=== PATIENT | female | born 1970 | race American Indian/Alaskan Native ===

== ENCOUNTER 2016-11-08 00:31 | Emergency (ER) | payer OTHER ==
--- NOTE | 2016-11-08 01:06 | EDM.PDOC ---
ED HPI GENERAL MEDICAL PROBLEM - General Chief Complaint: General Stated Complaint: BODY CRAMPS Time Seen by Provider: 11/08/16 00:45 Source of Information: Reports: Patient History Limitations: Reports: No Limitations - History of Present Illness INITIAL COMMENTS - FREE TEXT/NARRATIVE: c/o generalzied body cramps over past week, seems worse when lying down. notes generally better during day when up and around. No fever or chills, No nausea. Some abdominal bloating earlier in n[place] and gone now. - Related Data Allergies Allergy/AdvReac Type Severity Reaction Status Date / Time furosemide [From Lasix] Allergy Anxiety Verified 11/08/16 00:49 morphine Allergy Itching Verified 11/08/16 00:49 tramadol Allergy Nausea and Verified 11/08/16 00:49 Vomiting amoxicillin [Amoxicillin] AdvReac yeast Verified 11/08/16 00:49 infection hydrochlorothiazide AdvReac rapid pulse Verified 11/08/16 00:49 lisinopril AdvReac Cough Verified 11/08/16 00:49 telmisartan [From Micardis] AdvReac increased Verified 11/08/16 00:49 heart rate,stomach and back pain Home Meds: Home Meds Albuterol Sulfate [Proair Hfa] 2 puff IH Q4H PRN 03/12/13 [History] Omeprazole [Omeprazole] 20 mg PO DAILY 03/12/13 [History] ALPRAZolam [Alprazolam] 1 tab PO DAILY PRN 04/26/14 [History] Fluticasone Propionate [Flovent HFA 110 MCG] 1 puff IH BID PRN 04/26/14 [History ] Losartan [Cozaar] 1 tab PO DAILY 04/26/14 [History] Cholecalciferol (Vitamin D3) [Vitamin D3] 2,000 unit PO DAILY 07/17/15 [History] #103/Iron Fumarate/Fa [ ] 1 tab PO DAILY 07/17/15 [ History] diphenhydrAMINE [Benadryl] 25 mg PO ASDIRECTED PRN 07/17/15 [History] oxyCODONE HCl/Acetaminophen [Endocet 5-325 Tablet] 1 tab PO Q4HR PRN 07/24/15 [ History] Past Medical History Cardiovascular 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: Hypertension Respiratory 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: Asthma Gastrointestinal 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: Chronic Constipation, Diverticulosis, GERD 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: Musculoskeletal 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: Arthritis, Back Pain, Chronic Psychiatric 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: Anxiety, Mood Swings Hematologic 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: Anemia Oncologic (Cancer) 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: Breast - Infectious Disease History Infectious Disease 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: Chicken Pox - Past Surgical History HEENT Surgical 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: Adenoidectomy, Tonsillectomy Respiratory Surgical 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: None Female Surgical 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: Hysterectomy, Mastectomy Other Female Surgeries/Procedures: Right breast Ca Oncologic Surgical 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: Mastectomy Social & Family History - Tobacco Use Smoking Status *Q: Never Smoker Second Hand Smoke Exposure: No - Caffeine Use Caffeine Use: Reports: Soda - Alcohol Use Days Per Week of Alcohol Use: 0 - Recreational Drug Use Recreational Drug Use: No ED ROS GENERAL - Review of Systems Review Of Systems: See Below Constitutional: Denies: Fever, Chills HEENT: Reports: No Symptoms Respiratory: Reports: No Symptoms Cardiovascular: Reports: No Symptoms GI/Abdominal: Reports: Abdominal Pain (cramping worse when lying down) : Reports: No Symptoms Musculoskeletal: Reports: Back Pain, Muscle Pain Skin: Reports: No Symptoms Neurological: Reports: No Symptoms Psychiatric: Reports: Anxiety ED EXAM, GENERAL - Physical Exam Exam: See Below Exam Limited By: No Limitations General Appearance: Alert, Anxious, Moderate Distress, Obese Eye Exam: Bilateral Eye: PERRL Ears: Normal External Exam, Normal TMs Nose: Normal Inspection Throat/Mouth: Normal Inspection Head: Atraumatic Neck: Normal Inspection Respiratory/Chest: No Respiratory Distress Cardiovascular: Normal Peripheral Pulses, Regular Rate, Rhythm GI/Abdominal: Normal Bowel Sounds, Soft, Non-Tender. No: Distended Extremities: Normal Inspection, Pedal Edema Neurological: Alert, Oriented, Normal Cognition Psychiatric: Normal Affect, Anxious Skin Exam: Warm, Dry, Intact, Normal Color, No Rash Course - Vital Signs Last Recorded V/S: Last Vital Signs Temp 96.2 F 11/08/16 00:39 Pulse 83 11/08/16 00:39 Resp 18 11/08/16 00:39 BP 163/88 H 11/08/16 00:39 Pulse Ox 100 11/08/16 00:39 - Orders/Labs/Meds Labs: Laboratory Tests 11/08/16 11/08/16 11/08/16 Range/Units 01:06 01:14 01:14 WBC 14.3 H (5.0-10.0) 10^3/uL RBC 4.47 (4.2-5.4) 10^6/uL Hgb 11.8 L (12.0-16.0) g/dL Hct 37.5 (37.0-47.0) % MCV 83.9 (80-100) fL MCH 26.4 L (27.0-34.0) pg MCHC 31.5 L (33.0-35.0) g/dL Plt Count 372 (150-450) 10^3/uL Neut % (Auto) 56.1 (42.2-75.2) % Lymph % (Auto) 35.2 (20.5-50.1) % [place] % (Auto) 6.7 (2-8) % Eos % (Auto) 1.7 (1.0-3.0) % Baso % (Auto) 0.3 (0.0-1.0) % Sodium 133 L (135-145) mmol/L Potassium 4.0 (3.6-5.0) mmol/L Chloride 102 (101-111) mmol/L Carbon Dioxide 23.0 (21.0-31.0) mmol/L Anion Gap 12.0 BUN 17 (7-18) mg/dL Creatinine 1.3 (0.6-1.3) mg/dL Est Cr Clr Drug Dosing 48.58 mL/min Estimated GFR (MDRD) 44 BUN/Creatinine Ratio 13.07 Glucose 116 H (74-105) mg/dL Calcium 9.4 (8.4-10.2) mg/dl Total Bilirubin 0.7 (0.2-1.0) mg/dL AST 29 (10-42) IU/L ALT 32 (10-60) IU/L Alkaline Phosphatase 114 (42-121) IU/L Creatine Kinase (26-174) IU/L Total Protein 8.2 (6.7-8.2) g/dl Albumin 4.0 (3.2-5.5) g/dl Globulin 4.2 Albumin/Globulin Ratio 0.95 Amylase 41 (28-100) U/L Lipase 36 (22-51) U/L Urine Color Yellow (YELLOW) Urine Appearance Clear (CLEAR) Urine pH 7.0 (5.0-9.0) Ur Specific [place] 1.010 (1.005-1.030) Urine Protein Negative (NEGATIVE) Urine Glucose (UA) Negative (NEGATIVE) Urine Ketones Negative (NEGATIVE) Urine Occult Blood Trace-intact H (NEGATIVE) Urine Nitrite Negative (NEGATIVE) Urine Bilirubin Negative (NEGATIVE) Urine Urobilinogen 0.2 (0.2-1.0) mg/dL Ur Leukocyte Esterase Negative (NEGATIVE) Urine RBC 0-5 /HPF Urine WBC 0-5 (0-5/HPF) /HPF Ur Epithelial Cells Rare /HPF Amorphous Sediment Rare (0/HPF) /HPF Urine Bacteria Rare (0-FEW/HPF) /HPF 11/08/16 Range/Units 01:14 WBC (5.0-10.0) 10^3/uL RBC (4.2-5.4) 10^6/uL Hgb (12.0-16.0) g/dL Hct (37.0-47.0) % MCV (80-100) fL MCH (27.0-34.0) pg MCHC (33.0-35.0) g/dL Plt Count (150-450) 10^3/uL Neut % (Auto) (42.2-75.2) % Lymph % (Auto) (20.5-50.1) % [place] % (Auto) (2-8) % Eos % (Auto) (1.0-3.0) % Baso % (Auto) (0.0-1.0) % Sodium (135-145) mmol/L Potassium (3.6-5.0) mmol/L Chloride (101-111) mmol/L Carbon Dioxide (21.0-31.0) mmol/L Anion Gap BUN (7-18) mg/dL Creatinine (0.6-1.3) mg/dL Est Cr Clr Drug Dosing mL/min Estimated GFR (MDRD) BUN/Creatinine Ratio Glucose (74-105) mg/dL Calcium (8.4-10.2) mg/dl Total Bilirubin (0.2-1.0) mg/dL AST (10-42) IU/L ALT (10-60) IU/L Alkaline Phosphatase (42-121) IU/L Creatine Kinase 169 (26-174) IU/L Total Protein (6.7-8.2) g/dl Albumin (3.2-5.5) g/dl Globulin Albumin/Globulin Ratio Amylase (28-100) U/L Lipase (22-51) U/L Urine Color (YELLOW) Urine Appearance (CLEAR) Urine pH (5.0-9.0) Ur Specific [place] (1.005-1.030) Urine Protein (NEGATIVE) Urine Glucose (UA) (NEGATIVE) Urine Ketones (NEGATIVE) Urine Occult Blood (NEGATIVE) Urine Nitrite (NEGATIVE) Urine Bilirubin (NEGATIVE) Urine Urobilinogen (0.2-1.0) mg/dL Ur Leukocyte Esterase (NEGATIVE) Urine RBC /HPF Urine WBC (0-5/HPF) /HPF Ur Epithelial Cells /HPF Amorphous Sediment (0/HPF) /HPF Urine Bacteria (0-FEW/HPF) /HPF Meds: Medications Discontinued Medications Generic Name Dose Route Start Last Admin Trade Name Freq PRN Reason Stop Dose Admin Gabapentin 200 mg 11/08/16 02:28 Neurontin PO 11/08/16 02:29 ONETIME ONE Departure - Departure Time of Disposition: 02:29 Disposition: Home, Self-Care 01 Condition: Undetermined Clinical Impression: Myalgia, Muscle cramps at night - Discharge Information Instructions: Muscle Cramps and Spasms, [id number] Forms: ED Department Discharge Additional Instructions: Follow up with primary care Gabapentin 300mg one at bed time increase fluid intake avoid soda's, and hi sodium content foods supplement tylenol every 4 hours as needed avoid ibuprofen if on diclofenac
[2016-11-08] MEDS ORDERED: Gabapentin 100 MG Cap PO ONE (02:28)
[2016-11-08 02:41] VITALS: BP 147/76
== END 2016-11-08 02:40 | disposition home or self-care (01) ==
LOC: DL.ED 00:31
DX: R25.2 Cramp and spasm (principal); I10 Essential (primary) hypertension; J45.909 Unspecified asthma, uncomplicated; K21.9 Gastro-esophageal reflux disease without esophagitis; Z90.710 Acquired absence of both cervix and uterus; Z98.890 Other specified postprocedural states; Z86.2 Personal history of diseases of the blood and blood-forming organs and certain disorders involving the immune mechanism; Z88.5 Allergy status to narcotic agent; Z88.1 Allergy status to other antibiotic agents; Z88.8 Allergy status to other drugs, medicaments and biological substances; Z79.899 Other long term (current) drug therapy
CPT/HCPCS: 36415; 80053; 81001; 82150; 82550; 83690; 85025; 99283; A9270

== ENCOUNTER 2017-02-24 19:09 | Emergency (ER) | payer OTHER ==
[2017-02-24 19:16] VITALS: BP 159/96
--- NOTE | 2017-02-24 19:31 | EDM.PDOC ---
ED HPI GENERAL MEDICAL PROBLEM - General Chief Complaint: Respiratory Problem Stated Complaint: HARD TO BREATH/COUGH/SINUS [id number] Time Seen by Provider: 02/24/17 19:23 Source of Information: Reports: Patient History Limitations: Reports: No Limitations - History of Present Illness INITIAL COMMENTS - FREE TEXT/NARRATIVE: This 46 yo female patient reports to the ED with a 1 week history of increased upper respiratory symptoms. The patient reports she has a history of asthma. The patient reports when she starts getting sick, she usually ends up with bronchitis. 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, Other Medication(s) (Prednisone and Teslon Pearles) Bilateral Thoracic Pain Score (Numeric/FACES): 5 - Related Data Allergies Allergy/AdvReac Type Severity Reaction Status Date / Time furosemide [From Lasix] Allergy Anxiety Verified 11/08/16 00:49 morphine Allergy Itching Verified 11/08/16 00:49 tramadol Allergy Nausea and Verified 11/08/16 00:49 Vomiting amoxicillin [Amoxicillin] AdvReac yeast Verified 11/08/16 00:49 infection hydrochlorothiazide AdvReac rapid pulse Verified 11/08/16 00:49 lisinopril AdvReac Cough Verified 11/08/16 00:49 telmisartan [From Micardis] AdvReac increased Verified 11/08/16 00:49 heart rate,stomach and back pain Home Meds: Home Meds Albuterol Sulfate [Proair Hfa] 2 puff IH Q4H PRN 03/12/13 [History] ALPRAZolam [Alprazolam] 1 tab PO DAILY PRN 04/26/14 [History] Fluticasone Propionate [Flovent HFA 110 MCG] 1 puff IH BID PRN 04/26/14 [History ] Losartan [Cozaar] 1 tab PO DAILY 04/26/14 [History] Cholecalciferol (Vitamin D3) [Vitamin D3] 2,000 unit PO DAILY 07/17/15 [History] diphenhydrAMINE [Benadryl] 25 mg PO ASDIRECTED PRN 07/17/15 [History] Benzonatate [Tessalon Perles] 100 mg PO TID 02/24/17 [History] Methylprednisolone [IJD: Methylprednisolone] 4 mg PO ASDIRECTED 02/24/17 [ History] Past Medical History Cardiovascular 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: Hypertension Respiratory 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: Asthma Gastrointestinal 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: Chronic Constipation, Diverticulosis, 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: Musculoskeletal 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: Arthritis, Back Pain, Chronic Psychiatric 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: Anxiety, Mood Swings Hematologic 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: Anemia Oncologic (Cancer) 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: Breast - Infectious Disease History Infectious Disease 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: Chicken Pox - Past Surgical History HEENT Surgical 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: Adenoidectomy, Tonsillectomy Respiratory Surgical 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: None Female Surgical 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: Hysterectomy, Mastectomy Other Female Surgeries/Procedures: Right breast Ca Oncologic Surgical 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: Mastectomy Social & Family History - Tobacco Use Smoking Status *Q: Never Smoker Second Hand Smoke Exposure: No - Caffeine Use Caffeine Use: Reports: Soda - Alcohol Use Days Per Week of Alcohol Use: 0 - Recreational Drug Use Recreational Drug Use: No ED ROS GENERAL - Review of Systems Review Of Systems: ROS reveals no pertinent complaints other than HPI. ED EXAM, GENERAL - Physical Exam Exam: See Below Exam Limited By: No Limitations General Appearance: Alert, WD/WN, Moderate Distress, Obese Eye Exam: Bilateral Eye: EOMI, Normal Inspection, PERRL Ears: Normal External Exam, Normal Canal, Hearing Grossly Normal, Normal TMs Nose: Normal Inspection, Normal Mucosa, No Blood, Clear Rhinorrhea Throat/Mouth: Normal Inspection, Normal Lips, Normal Teeth, Normal Gums, Normal Oropharynx, Normal Voice, No Airway Compromise Head: Atraumatic, Normocephalic Neck: Normal Inspection, Supple, Non-Tender, Full Range of Motion Respiratory/Chest: No Respiratory Distress, No Accessory Muscle Use, Chest Non- Tender, Rhonchi (left lower lobe) Cardiovascular: Normal Peripheral Pulses, Regular Rate, Rhythm, No Edema, No Gallop, No JVD, No Murmur, No Rub GI/Abdominal: Normal Bowel Sounds, Soft, Non-Tender, No Organomegaly, No Distention, No Abnormal Bruit, No Mass (Female) Exam: Deferred Rectal (Female) Exam: Deferred Back Exam: Normal Inspection, Full Range of Motion, NT Extremities: Normal Inspection, Normal Range of Motion, Non-Tender, Normal Capillary Refill, No Pedal Edema Neurological: Alert, Oriented, CN II-XII Intact, Normal Cognition, Normal Gait, Normal Reflexes, No Motor/Sensory Deficits Psychiatric: Normal Affect, Normal Mood Skin Exam: Warm, Dry, Intact, Normal Color, No Rash Lymphatic: No Adenopathy Course - Vital Signs Last Recorded V/S: Last Vital Signs Temp 36.8 C 02/24/17 19:11 Pulse 88 02/24/17 19:11 Resp 18 02/24/17 19:11 BP 159/96 H 02/24/17 19:11 Pulse Ox 99 02/24/17 19:11 - Orders/Labs/Meds Orders: Active Orders 24 hr Category Date Time Status COMPREHENSIVE METABOLIC PN,CMP [CHEM] Urgent Lab 02/24/17 19:45 Received CULTURE STREP A CONFIRMATION [] Stat Lab 02/24/17 19:26 Results STREP SCRN A RAPID W CULT CONF [] Stat Lab 02/24/17 19:26 Results Labs: Laboratory Tests 02/24/17 Range/Units 19:45 WBC 11.3 H (5.0-10.0) 10^3/uL RBC 4.58 (4.2-5.4) 10^6/uL Hgb 11.9 L (12.0-16.0) g/dL Hct 38.6 (37.0-47.0) % MCV 84.3 (80-100) fL MCH 26.0 L (27.0-34.0) pg MCHC 30.8 L (33.0-35.0) g/dL Plt Count 304 (150-450) 10^3/uL Neut % (Auto) 66.1 (42.2-75.2) % Lymph % (Auto) 22.3 (20.5-50.1) % [place] % (Auto) 10.9 H (2-8) % Eos % (Auto) 0.3 L (1.0-3.0) % Baso % (Auto) 0.4 (0.0-1.0) % Meds: Medications Discontinued Medications Generic Name Dose Route Start Last Admin Trade Name Freq PRN Reason Stop Dose Admin Ceftriaxone Sodium 1 gm/ 0 gm 02/24/17 20:00 Lidocaine HCl 2.1 ml IM 02/24/17 20:01 ONETIME ONE Departure - Departure Time of Disposition: 20:01 Disposition: Home, Self-Care 01 Condition: Fair Clinical Impression: Bronchitis - Discharge Information Instructions: Acute Bronchitis, [id number] Forms: ED Department Discharge Care Plan Goals: The patient was advised of the examination, lab and x-ray results during the visit. The patient was given an injection of Rocephin while in the ED. The patient was discharged with a script for Azithromycin (250 mg) #6 to take 2 by mouth on day 1 and 1 by mouth on days 2-5. The patient should continue with her current medications as prescribed. If the patient has any additional symptoms or concerns, the patient should follow-up with her primary care facility or return to the emergency department. - My Orders Last 24 Hours: My Active Orders 02/24/17 19:26 CULTURE STREP A CONFIRMATION [RM] Stat STREP SCRN A RAPID W CULT CONF [RM] Stat 02/24/17 19:45 COMPREHENSIVE METABOLIC PN,CMP [CHEM] Urgent - Assessment/Plan Last 24 Hours: My Active Orders 02/24/17 19:26 CULTURE STREP A CONFIRMATION [RM] Stat STREP SCRN A RAPID W CULT CONF [RM] Stat 02/24/17 19:45 COMPREHENSIVE METABOLIC PN,CMP [CHEM] Urgent
[2017-02-24] MEDS ORDERED: cefTRIAXone 1 GM, Lidocaine 1% 2.1 ML IM ONE ×2 (20:00)
[2017-02-24] MEDS ORDERED: cefTRIAXone 1 GM Vial ONE (20:10)
[2017-02-24 20:11] LABS: CHLORIDE,CL 104 mmol/L (101-111); SODIUM,NA 138 mmol/L (135-145)
== END 2017-02-24 20:20 | disposition home or self-care (01) ==
LOC: DL.ED 19:09
DX: J40 Bronchitis, not specified as acute or chronic (principal); I10 Essential (primary) hypertension; Z88.5 Allergy status to narcotic agent; Z91.040 Latex allergy status; Z88.1 Allergy status to other antibiotic agents; Z79.899 Other long term (current) drug therapy
CPT/HCPCS: 36415; 71020; 80053; 85025; 87081; 87430; 87804; 96372; 99283; J0696

== ENCOUNTER 2017-06-17 21:50 | Emergency (ER) | payer OTHER ==
[2017-06-17 22:06] VITALS: BP 157/88
[2017-06-17] MEDS ORDERED: GI Cocktail Oral Solution 30 ML PO ONE (22:10)
--- NOTE | 2017-06-17 22:13 | EDM.PDOC ---
ED HPI GENERAL MEDICAL PROBLEM - General Chief Complaint: Chest Pain Stated Complaint: CHEST PAIN [id number] Time Seen by Provider: 06/17/17 22:11 Source of Information: Reports: Patient, Family History Limitations: Reports: No Limitations - History of Present Illness INITIAL COMMENTS - FREE TEXT/NARRATIVE: 4 days h/o mid sternal pain is relieved somewhat by drinking baking soda but returns. tried OTC prilosec but still returns. Mid-Sternal Chest Pain Score (Numeric/FACES): 5 - Related Data Allergies Allergy/AdvReac Type Severity Reaction Status Date / Time furosemide [From Lasix] Allergy Anxiety Verified 06/17/17 22:06 morphine Allergy Itching Verified 06/17/17 22:06 tramadol Allergy Nausea and Verified 06/17/17 22:06 Vomiting amoxicillin [Amoxicillin] AdvReac yeast Verified 06/17/17 22:06 infection hydrochlorothiazide AdvReac rapid pulse Verified 06/17/17 22:06 lisinopril AdvReac Cough Verified 06/17/17 22:06 telmisartan [From Micardis] AdvReac increased Verified 06/17/17 22:06 heart rate,stomach and back pain Home Meds: Home Meds Albuterol Sulfate [Proair Hfa] 2 puff IH Q4H PRN 03/12/13 [History] ALPRAZolam [Alprazolam] 1 tab PO DAILY PRN 04/26/14 [History] Fluticasone Propionate [Flovent HFA 110 MCG] 1 puff IH BID PRN 04/26/14 [History ] Losartan [Cozaar] 1 tab PO DAILY 04/26/14 [History] Cholecalciferol (Vitamin D3) [Vitamin D3] 2,000 unit PO DAILY 07/17/15 [History] diphenhydrAMINE [Benadryl] 25 mg PO ASDIRECTED PRN 07/17/15 [History] Benzonatate [Tessalon Perles] 100 mg PO TID 02/24/17 [History] Methylprednisolone [IJD: Methylprednisolone] 4 mg PO ASDIRECTED 02/24/17 [ History] Past Medical History Cardiovascular 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: Hypertension Respiratory 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: Asthma Gastrointestinal 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: Chronic Constipation, Diverticulosis, 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: Musculoskeletal 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: Arthritis, Back Pain, Chronic Psychiatric 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: Anxiety, Mood Swings Hematologic 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: Anemia Oncologic (Cancer) 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: Breast - Infectious Disease History Infectious Disease 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: Chicken Pox - Past Surgical History HEENT Surgical 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: Adenoidectomy, Tonsillectomy Respiratory Surgical 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: None Female Surgical 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: Hysterectomy, Mastectomy Other Female Surgeries/Procedures: Right breast Ca Oncologic Surgical 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: Mastectomy Social & Family History - Tobacco Use Smoking Status *Q: Never Smoker Second Hand Smoke Exposure: No - Caffeine Use Caffeine Use: Reports: Soda - Alcohol Use Days Per Week of Alcohol Use: 0 - Recreational Drug Use Recreational Drug Use: No ED ROS GENERAL - Review of Systems Review Of Systems: ROS reveals no pertinent complaints other than HPI. ED EXAM, GENERAL - Physical Exam Exam: See Below Exam Limited By: No Limitations General Appearance: Alert, WD/WN, Mild Distress, Other (discomfort) Ears: Hearing Grossly Normal Throat/Mouth: Normal Voice, No Airway Compromise Head: Atraumatic Neck: Non-Tender, Full Range of Motion Respiratory/Chest: No Respiratory Distress Cardiovascular: Regular Rate, Rhythm GI/Abdominal: Soft, Non-Tender Neurological: Alert, Oriented, Normal Cognition, Normal Gait, No Motor/Sensory Deficits Psychiatric: Flat Affect Skin Exam: Warm, Dry, Normal Color Lymphatic: No Adenopathy Course - Vital Signs Last Recorded V/S: Last Vital Signs Temp 37.3 C 06/17/17 21:57 Pulse 91 06/17/17 21:57 Resp 16 06/17/17 21:57 BP 157/88 H 06/17/17 21:57 Pulse Ox 100 06/17/17 21:57 - Orders/Labs/Meds Orders: Active Orders 24 hr Category Date Time Status EKG 12 Lead [EKG Documentation Completion] [RC] URGENT Care 06/17/17 22:09 Active Labs: Laboratory Tests 06/17/17 06/17/17 06/17/17 Range/Units 22:15 22:15 22:15 WBC 11.6 H (5.0-10.0) 10^3/uL RBC 4.41 (4.2-5.4) 10^6/uL Hgb 11.8 L (12.0-16.0) g/dL Hct 36.8 L (37.0-47.0) % MCV 83.4 (80-100) fL MCH 26.8 L (27.0-34.0) pg MCHC 32.1 L (33.0-35.0) g/dL Plt Count 305 (150-450) 10^3/uL Neut % (Auto) 52.7 (42.2-75.2) % Lymph % (Auto) 37.8 (20.5-50.1) % [place] % (Auto) 6.6 (2-8) % Eos % (Auto) 2.5 (1.0-3.0) % Baso % (Auto) 0.4 (0.0-1.0) % D-Dimer, Quantitative 110 (0-400) ng/mL Sodium 140 (135-145) mmol/L Potassium 3.7 (3.6-5.0) mmol/L Chloride 105 (101-111) mmol/L Carbon Dioxide 27.0 (21.0-31.0) mmol/L Anion Gap 11.7 BUN 9 (7-18) mg/dL Creatinine 0.7 (0.6-1.3) mg/dL Est Cr Clr Drug Dosing 81.30 mL/min Estimated GFR (MDRD) > 60 BUN/Creatinine Ratio 12.85 Glucose 88 (74-105) mg/dL Calcium 9.0 (8.4-10.2) mg/dl Total Bilirubin 0.7 (0.2-1.0) mg/dL AST 58 H (10-42) IU/L ALT 57 (10-60) IU/L Alkaline Phosphatase 101 (42-121) IU/L Troponin I < 0.02 (0.00-0.02) ng/ml Total Protein 7.4 (6.7-8.2) g/dl Albumin 3.9 (3.2-5.5) g/dl Globulin 3.5 Albumin/Globulin Ratio 1.11 Meds: Medications Discontinued Medications Generic Name Dose Route Start Last Admin Trade Name Freq PRN Reason Stop Dose Admin Al Hydroxide/Mg Hydroxide 30 ml 06/17/17 22:10 06/17/17 22:15 Gi Cocktail PO 06/17/17 22:11 30 ml ONETIME ONE Administration Ketorolac Tromethamine 15 mg 06/17/17 23:14 06/17/17 23:21 Toradol IVPUSH 06/17/17 23:15 15 mg ONETIME ONE Administration Pantoprazole Sodium 40 mg 06/17/17 23:34 06/17/17 23:39 Protonix Iv IVPUSH 06/17/17 23:35 40 mg ONETIME ONE Administration - Re-Assessments/Exams Free Text/Narrative Re-Assessment/Exam: 06/17/17 22:25 s/p GI cocktail states heartburn sensation gone but the other pain is still there which has been since Sunday. 06/17/17 23:34 s/p IV toradol = much better now. 06/18/17 00:00 s/p IV protonex pain almost totally gone now. Departure - Departure Time of Disposition: 00:00 Disposition: Home, Self-Care 01 Condition: Good Clinical Impression: GERD (gastroesophageal reflux disease) Qualifiers: Esophagitis presence: with esophagitis Qualified Code(s): K21.0 - Gastro- esophageal reflux disease with esophagitis Instructions: Food Choices for Gastroesophageal Reflux Disease, Adult Forms: ED Department Discharge Additional Instructions: 1) continue with omeprazole 2) follow up at clinic for possible GASTROSCOPY 3) recheck if there is any change or concern - My Orders Last 24 Hours: My Active Orders 06/17/17 22:09 EKG 12 Lead [EKG Documentation Completion] [RC] URGENT - Assessment/Plan Last 24 Hours: My Active Orders 06/17/17 22:09 EKG 12 Lead [EKG Documentation Completion] [RC] URGENT
[2017-06-17 22:45] LABS: CHLORIDE,CL 105 mmol/L (101-111); SODIUM,NA 140 mmol/L (135-145)
[2017-06-17] MEDS ORDERED: Ketorolac 30 MG/ML SDV IVPUSH ONE (23:14)
[2017-06-17] MEDS ORDERED: Pantoprazole 40 MG Vial IVPUSH ONE (23:34)
--- NOTE | 2017-06-18 17:20 | EKG ---
06/17/2017 - BRITTANY CAUSEY - TIME: 2203 hours. FINDINGS: EKG shows a sinus rhythm. Probable inferior infarct. [facility] /[id number]
== END 2017-06-18 00:05 | disposition home or self-care (01) ==
LOC: DL.ED 21:50
DX: K21.0 Gastro-esophageal reflux disease with esophagitis (principal); I10 Essential (primary) hypertension; Z88.5 Allergy status to narcotic agent; Z88.8 Allergy status to other drugs, medicaments and biological substances; Z88.1 Allergy status to other antibiotic agents; Z79.899 Other long term (current) drug therapy
CPT/HCPCS: 36415; 71045; 80053; 84484; 85025; 85379; 93005; 96374; 96375; 99285; A9270-GY; C9113; J1885

== ENCOUNTER 2017-11-20 16:32 | Emergency (ER) | payer OTHER ==
[2017-11-20] MEDS ORDERED: Phenazopyridine 95 MG Tab PO ONE (19:32)
[2017-11-20] MEDS ORDERED: Nitrofurantoin Monohydrate/Macrocrystalline 100 MG Cap PO ONE (19:32)
--- NOTE | 2017-11-20 19:36 | EDM.PDOC ---
ED HPI GENERAL MEDICAL PROBLEM - General Chief Complaint: Genitourinary Problem Stated Complaint: BLEEDING/[id number] Time Seen by Provider: 11/20/17 19:24 Source of Information: Reports: Patient, RN, RN Notes Reviewed History Limitations: Reports: No Limitations - History of Present Illness INITIAL COMMENTS - FREE TEXT/NARRATIVE: Pt to Er with c/o burning, urgency, frequency with urination, in addition to blood with urination. She states this began today. She states she has been drinking cranberry juice, but it has progressively gotten worse today. Patient admits to stomach cramping and diarrhea. Denies fever, chills, N/V, CP, SOB. Onset: Today Abdominal Pain Score (Numeric/FACES): 8 - Related Data Allergies Allergy/AdvReac Type Severity Reaction Status Date / Time furosemide [From Lasix] Allergy Anxiety Verified 10/20/17 22:26 morphine Allergy Itching Verified 10/20/17 22:26 tramadol Allergy Nausea and Verified 10/20/17 22:26 Vomiting amoxicillin [Amoxicillin] AdvReac yeast Verified 10/20/17 22:26 infection hydrochlorothiazide AdvReac rapid pulse Verified 10/20/17 22:26 lisinopril AdvReac Cough Verified 10/20/17 22:26 telmisartan [From Micardis] AdvReac increased Verified 10/20/17 22:26 heart rate,stomach and back pain Home Meds: Home Meds Albuterol Sulfate [Proair Hfa] 2 puff IH Q4H PRN 03/12/13 [History] ALPRAZolam [Alprazolam] 1 tab PO DAILY PRN 04/26/14 [History] Fluticasone Propionate [Flovent HFA 110 MCG] 1 puff IH BID PRN 04/26/14 [History ] Losartan [Cozaar] 1 tab PO DAILY 04/26/14 [History] diphenhydrAMINE [Benadryl] 25 mg PO ASDIRECTED PRN 07/17/15 [History] Gabapentin [Neurontin] 300 mg PO BID 10/20/17 [History] Past Medical History HEENT 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: Impaired Vision Cardiovascular 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: Hypertension Respiratory 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: Asthma Gastrointestinal 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: Chronic Constipation, Diverticulosis, GERD 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: , Other (See Below) Other 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 SPOTTER History: hysterectomy Musculoskeletal 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: Arthritis, Back Pain, Chronic Psychiatric 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: Anxiety, Mood Swings Endocrine/Metabolic 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: Obesity/BMI 30+ Hematologic 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: Anemia Oncologic (Cancer) 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: Breast - Infectious Disease History Infectious Disease 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: Chicken Pox - Past Surgical History HEENT Surgical 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: Adenoidectomy, Tonsillectomy Respiratory Surgical 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: None GI Surgical 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: Appendectomy, Cholecystectomy Female Surgical 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: Breast Biopsy, Hysterectomy, Mastectomy Other Female Surgeries/Procedures: Right breast Ca Oncologic Surgical 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: Mastectomy Social & Family History - Family History Family Medical History: Noncontributory - Tobacco Use Smoking Status *Q: Never Smoker - Caffeine Use Caffeine Use: Reports: Soda - Recreational Drug Use Recreational Drug Use: No ED ROS GENERAL - Review of Systems Review Of Systems: ROS reveals no pertinent complaints other than HPI. ED EXAM, RENAL/ - Physical Exam Exam: See Below Exam Limited By: No Limitations General Appearance: Alert, WD/WN, No Apparent Distress Eye Exam: Bilateral Eye: EOMI, Normal Inspection Ears: Normal External Exam, Hearing Grossly Normal Nose: Normal Inspection Throat/Mouth: Normal Inspection, Normal Voice, No Airway Compromise Head: Atraumatic, Normocephalic Neck: Normal Inspection Respiratory/Chest: No Respiratory Distress, Lungs Clear, Normal Breath Sounds, No Accessory Muscle Use, Chest Non-Tender Cardiovascular: Normal Peripheral Pulses, Regular Rate, Rhythm, No Edema, No Gallop, No JVD, No Murmur, No Rub GI/Abdominal: Normal Bowel Sounds, Soft, Tender (RLQ, LLQ) (Female) Exam: Deferred Rectal (Female) Exam: Deferred Back Exam: Normal Inspection, Full Range of Motion. No: CVA Tenderness (L), CVA Tenderness (R) Extremities: Normal Inspection, Normal Range of Motion, Non-Tender, No Pedal Edema, Normal Capillary Refill Neurological: Alert, Oriented, CN II-XII Intact, Normal Cognition, Normal Gait, Normal Reflexes, No Motor/Sensory Deficits Psychiatric: Normal Affect, Normal Mood Skin Exam: Warm, Dry, Intact, Normal Color, No Rash Lymphatic: No Adenopathy Course - Vital Signs Last Recorded V/S: Last Vital Signs Temp 98.2 F 11/20/17 17:14 Pulse 86 11/20/17 17:14 Resp 16 11/20/17 17:14 BP Pulse Ox 100 11/20/17 17:14 - Orders/Labs/Meds Orders: Active Orders 24 hr Category Date Time Status CULTURE URINE [RM] Urgent Lab 11/20/17 18:04 Received URINALYSIS W/MICROSCOPIC [UA W/MICROSCOPIC] [URIN] Stat Lab 11/20/17 18:04 Ordered Labs: Laboratory Tests 11/20/17 Range/Units 18:04 Urine Color Dark yellow (YELLOW) Urine Appearance Turbid (CLEAR) Urine pH 5.5 (5.0-9.0) Ur Specific [place] 1.010 (1.005-1.030) Urine Protein 30 H (NEGATIVE) Urine Glucose (UA) Negative (NEGATIVE) Urine Ketones Negative (NEGATIVE) Urine Occult Blood Large H (NEGATIVE) Urine Nitrite Negative (NEGATIVE) Urine Bilirubin Negative (NEGATIVE) Urine Urobilinogen 0.2 (0.2-1.0) mg/dL Ur Leukocyte Esterase Large H (NEGATIVE) Urine RBC >100 H /HPF Urine WBC 75-100 H (0-5/HPF) /HPF Ur Epithelial Cells Rare /HPF Amorphous Sediment Rare (0/HPF) /HPF Urine Bacteria Few (0-FEW/HPF) /HPF Urine Mucus Rare /LPF Meds: Medications Discontinued Medications Generic Name Dose Route Start Last Admin Trade Name Freq PRN Reason Stop Dose Admin Nitrofurantoin Macrocrystals 100 mg 11/20/17 19:32 11/20/17 19:36 Macrobid PO 11/20/17 19:33 100 mg ONETIME ONE Administration Phenazopyridine HCl 95 mg 11/20/17 19:32 11/20/17 19:36 Urinary Pain Relief PO 11/20/17 19:33 95 mg ONETIME ONE Administration Departure - Departure Time of Disposition: 19:35 Disposition: Home, Self-Care 01 Condition: Fair Clinical Impression: UTI (urinary tract infection) Qualifiers: Urinary tract infection type: acute cystitis Hematuria presence: with hematuria Qualified Code(s): N30.01 - Acute cystitis with hematuria - Discharge Information *PRESCRIPTION DRUG MONITORING PROGRAM REVIEWED*: No *COPY OF PRESCRIPTION DRUG MONITORING REPORT IN PATIENT RAMON: No Instructions: Urinary Tract Infection, Adult, [id number] Forms: ED Department Discharge Additional Instructions: Drink plenty of fluids RX: Macrobid, Pyridium Follow up with your primary care facility for recheck of the urine - My Orders Last 24 Hours: My Active Orders 11/20/17 18:04 CULTURE URINE [RM] Urgent - Assessment/Plan Last 24 Hours: My Active Orders 11/20/17 18:04 CULTURE URINE [RM] Urgent
== END 2017-11-20 19:38 | disposition home or self-care (01) ==
LOC: DL.ED 16:32
DX: N30.01 Acute cystitis with hematuria (principal); I10 Essential (primary) hypertension; J45.909 Unspecified asthma, uncomplicated; Z88.8 Allergy status to other drugs, medicaments and biological substances; Z88.5 Allergy status to narcotic agent; Z79.899 Other long term (current) drug therapy
CPT/HCPCS: 81001; 87086; 99283; A9270; 87186

== ENCOUNTER 2020-11-03 22:12 | Emergency (ER) | payer MEDICAID, OTHER ==
--- NOTE | 2020-11-03 22:53 | EDM.PDOC ---
ED HPI GENERAL MEDICAL PROBLEM - General Chief Complaint: Abdominal Pain Stated Complaint: DIVERTICULITUS, PAIN IS HURTING. Time Seen by Provider: 11/03/20 22:40 Source of Information: Reports: Patient History Limitations: Reports: No Limitations - History of Present Illness INITIAL COMMENTS - FREE TEXT/NARRATIVE: This 50 yo female patient reports to the ED with increased abdominal pain. The patient reports she does have a history of diverticulitis and started noticing increased pain over the past week. The patient was seen in the [facility] today and started on antibiotics, but has had increased pain since that visit. The patient reports she was advised to come to the ED if she had an increase in pain or fever. The patient denies a fever. The patient has not been seen by a GI specialist at this time. The patient reports she did waste picker her antibiotics and took them as directed. Duration: Week(s):, Constant, Getting Worse Location: Reports: Abdomen Quality: Reports: Other Severity: Moderate Improves with: Reports: None Worsens with: Reports: None Context: Reports: Other Associated Symptoms: Reports: Other Abdomen Pain Score (Numeric/FACES): 6 - Related Data Allergies Allergy/AdvReac Type Severity Reaction Status Date / Time furosemide [From Lasix] Allergy Anxiety Verified 11/03/20 22:45 morphine Allergy Itching Verified 11/03/20 22:45 tramadol Allergy Nausea and Verified 11/03/20 22:45 Vomiting amoxicillin [Amoxicillin] AdvReac yeast Verified 11/03/20 22:45 infection hydrochlorothiazide AdvReac rapid pulse Verified 11/03/20 22:45 lisinopril AdvReac Cough Verified 11/03/20 22:45 telmisartan [From Micardis] AdvReac increased Verified 11/03/20 22:45 heart rate,stomach and back pain Home Meds: Home Meds Albuterol Sulfate [Proair Hfa] 2 puff IH Q4H PRN 03/12/13 [History] ALPRAZolam [Alprazolam] 1 tab PO DAILY PRN 04/26/14 [History] Fluticasone Propionate [Flovent HFA 110 MCG] 1 puff IH BID PRN 04/26/14 [History] Losartan [Cozaar] 1 tab PO DAILY 04/26/14 [History] diphenhydrAMINE [Benadryl] 25 mg PO ASDIRECTED PRN 07/17/15 [History] Gabapentin [Neurontin] 300 mg PO DAILY 08/07/18 [History] Past Medical History HEENT 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: Impaired Vision Cardiovascular 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: Hypertension Respiratory 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: Asthma Gastrointestinal 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: Chronic Constipation, Diverticulosis, GERD 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: , Other (See Below) Other RECORDS MANAGEMENT ANALYST History: hysterectomy Musculoskeletal 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: Arthritis, Back Pain, Chronic Neurological 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: Other (See Below) Other Neuro History: muscle spasms Psychiatric 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: Anxiety, Mood Swings Endocrine/Metabolic 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: Obesity/BMI 30+ Hematologic 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: Anemia Immunologic 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: None Oncologic (Cancer) 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: Breast - Infectious Disease History Infectious Disease 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: Chicken Pox - Past Surgical History Head Surgeries/Procedures: Reports: None HEENT Surgical 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: Adenoidectomy, Tonsillectomy Respiratory Surgical 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: None GI Surgical 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: Appendectomy, Cholecystectomy Female Surgical 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: Breast Biopsy, Hysterectomy, Mastectomy Other Female Surgeries/Procedures: Right breast Ca Musculoskeletal Surgical 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: None Oncologic Surgical 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: Mastectomy Dermatological Surgical 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: Skin Biopsy Social & Family History - Family History Family Medical History: No Pertinent Family History - Tobacco Use Tobacco Use Status *Q: Never Tobacco User - Caffeine Use Caffeine Use: Reports: Soda - Recreational Drug Use Recreational Drug Use: No ED ROS GENERAL - Review of Systems Review Of Systems: Comprehensive ROS is negative, except as noted in HPI. ED EXAM, GI/ABD - Physical Exam Exam: See Below Exam Limited By: No Limitations General Appearance: Alert, WD/WN, Moderate Distress, Obese Eyes: Bilateral: Normal Appearance, EOMI Ears: Normal External Exam, Normal Canal, Hearing Grossly Normal, Normal TMs Nose: Normal Inspection, Normal Mucosa, No Blood Throat/Mouth: Normal Inspection, Normal Lips, Normal Teeth, Normal Gums, Normal Oropharynx, Normal Voice, No Airway Compromise Head: Atraumatic, Normocephalic Neck: Normal Inspection, Supple, Non-Tender, Full Range of Motion Respiratory/Chest: No Respiratory Distress, Lungs Clear, Normal Breath Sounds, No Accessory Muscle Use, Chest Non-Tender Cardiovascular: Normal Peripheral Pulses, Regular Rate, Rhythm, No Edema, No Gallop, No JVD, No Murmur, No Rub GI/Abdominal Exam: Normal Bowel Sounds, Soft, No Organomegaly, No Distention, No Abnormal Bruit, No Mass, Pelvis Stable, Tender (diffuse tenderness) (Female) Exam: Deferred Rectal (Female) Exam: Deferred Back Exam: Normal Inspection, Full Range of Motion, NT Extremities: Normal Inspection, Normal Range of Motion, Non-Tender, Normal Capillary Refill, No Pedal Edema Neurological: Alert, Oriented, CN II-XII Intact, Normal Cognition, Normal Gait, Normal Reflexes, No Motor/Sensory Deficits Psychiatric: Normal Affect, Normal Mood Skin Exam: Warm, Dry, Intact, Normal Color, No Rash Lymphatic: No Adenopathy Course - Vital Signs Last Recorded V/S: Last Vital Signs Temp 97.4 F 11/03/20 22:44 Pulse 80 11/03/20 22:44 Resp 18 11/03/20 22:44 BP 154/95 H 11/03/20 22:44 Pulse Ox 98 11/03/20 22:44 - Orders/Labs/Meds Orders: Active Orders 24 hr Category Date Time Status CULTURE BLOOD [BC] Stat Lab 11/03/20 23:00 Received Ketorolac [Toradol] Med 11/03/20 23:43 Once 30 mg IM ONETIME ONE Labs: Laboratory Tests 11/03/20 11/03/20 11/03/20 Range/Units 23:00 23:00 23:00 WBC 9.3 (5.0-10.0) 10^3/uL RBC 4.16 L (4.2-5.4) 10^6/uL Hgb 11.7 L (12.0-16.0) g/dL Hct 36.4 L (37.0-47.0) % MCV 87.5 D (80-100) fL MCH 28.1 (27.0-34.0) pg MCHC 32.1 L (33.0-35.0) g/dL Plt Count 289 (150-450) 10^3/uL Neut % (Auto) 58.8 (42.2-75.2) % Lymph % (Auto) 31.6 (20.5-50.1) % Phillips % (Auto) 6.4 (2-8) % Eos % (Auto) 2.7 (1.0-3.0) % Baso % (Auto) 0.5 (0.0-1.0) % Sodium 143 (136-145) mmol/L Potassium 3.8 (3.5-5.1) mmol/L Chloride 104 (98-107) mmol/L Carbon Dioxide 30 (21-32) mmol/L Anion Gap 12.8 (7-13) mEq/L BUN 9 (7-18) mg/dL Creatinine 0.92 (0.55-1.02) mg/dL Est Cr Clr Drug Dosing 64.37 mL/min Estimated GFR (MDRD) > 60 BUN/Creatinine Ratio 9.8 (No establ ref range) Glucose 125 H (70-99) mg/dL Lactic Acid 0.9 (0.4-2.0) mmol/L Calcium 8.9 (8.5-10.1) mg/dL Total Bilirubin 0.6 (0.2-1.0) mg/dL AST 29 (15-37) U/L ALT 40 (14-59) U/L Alkaline Phosphatase 90 (46-116) U/L Total Protein 7.3 (6.4-8.2) g/dL Albumin 3.4 (3.4-5.0) g/dL Globulin 3.9 Albumin/Globulin Ratio 0.9 Departure - Departure Time of Disposition: 23:43 Disposition: Home, Self-Care 01 Condition: Fair Clinical Impression: Diverticulitis - Discharge Information *PRESCRIPTION DRUG MONITORING PROGRAM REVIEWED*: Not Applicable *COPY OF PRESCRIPTION DRUG MONITORING REPORT IN PATIENT RAMON: Not Applicable Instructions: Diverticulitis, [id number] Forms: ED Department Discharge Care Plan Goals: The patient was advised of the examination and lab results during the visit. The patient was given an injection of Toradol during the visit. The patient was encouraged to continue to take her medication as prescribed. If the patient has any additional symptoms or concerns, the patient should either return to the emergency department or visit her primary care facility. Sepsis Event Note (ED) - Evaluation Sepsis Screening Result: No Definite Risk - Focused Exam Vital Signs: Vital Signs Temp Pulse Resp BP Pulse Ox 11/03/20 22:44 97.4 F 80 18 154/95 H 98 - My Orders Last 24 Hours: My Active Orders 11/03/20 23:00 CULTURE BLOOD [BC] Stat 11/03/20 23:43 Ketorolac [Toradol] 30 mg IM ONETIME ONE - Assessment/Plan Last 24 Hours: My Active Orders 11/03/20 23:00 CULTURE BLOOD [BC] Stat 11/03/20 23:43 Ketorolac [Toradol] 30 mg IM ONETIME ONE
[2020-11-03 23:32] LABS: ANION GAP 12.8 mEq/L (7-13); CHLORIDE,CL 104 mmol/L (98-107); SODIUM,NA 143 mmol/L (136-145)
[2020-11-03] MEDS ORDERED: Ketorolac 30 MG/ML SDV IM ONE (23:43)
[2020-11-03 23:50] VITALS: BP 140/91; PULSE 76
== END 2020-11-04 00:16 | disposition home or self-care (01) ==
LOC: DL.ED 22:12
DX: K57.32 Diverticulitis of large intestine without perforation or abscess without bleeding (principal); I10 Essential (primary) hypertension; K21.9 Gastro-esophageal reflux disease without esophagitis; E66.9 Obesity, unspecified; Z68.42 Body mass index [BMI] 45.0-49.9, adult; Z79.899 Other long term (current) drug therapy; Z88.0 Allergy status to penicillin; Z88.5 Allergy status to narcotic agent; Z88.8 Allergy status to other drugs, medicaments and biological substances
CPT/HCPCS: 36415; 80053; 83605; 85025; 87040; 96372; 99283; 99284; J1885

== ENCOUNTER 2022-05-02 19:48 | Emergency (ER) | payer BC, MEDICAID ==
[2022-05-02] MEDS ORDERED: Sodium Chloride 0.9% 10 ML Syringe IV ONE (19:49)
[2022-05-02] MEDS ORDERED: Ondansetron 4 MG/2 ML SDV IVPUSH ONE ×2 (19:49→21:04)
[2022-05-02] MEDS ORDERED: Propofol 200 MG/20 ML SDV IV ONE (19:49)
[2022-05-02] MEDS ORDERED: Midazolam 1 MG/ML 2 ML SDV IV ONE (19:49)
[2022-05-02] MEDS ORDERED: Sodium Chloride 0.9% 10 ML Syringe FLUSH PRN (19:49)
[2022-05-02] MEDS ORDERED: Acetaminophen/oxyCODONE 325-5 MG Tab PO ONE (19:49)
[2022-05-02] MEDS ORDERED: Sodium Chloride 0.9% 500 ML IV ONE (19:49)
[2022-05-02] MEDS ORDERED: Ketamine 500 mg/10 ML MDV IV ONE (19:49)
[2022-05-02] MEDS ORDERED: HYDROmorphone 1 MG/ML Syringe IVPUSH ONE (20:02)
[2022-05-02 20:17] VITALS: BP 171/128; PULSE 99
[2022-05-02] MEDS ORDERED: Acetaminophen/oxyCODONE 325-5 MG Tab ONE (21:06)
[2022-05-02] MEDS ORDERED: Scopolamine 1.5 MG Transdermal Patch TOP ONE (21:19)
[2022-05-02] MEDS ORDERED: Promethazine 25 MG/ML SDV IM ONE (21:49)
== END 2022-05-02 22:10 | disposition home or self-care (01) ==
LOC: DL.ED 19:48
DX: S43.004A Unspecified dislocation of right shoulder joint, initial encounter (principal); I10 Essential (primary) hypertension; J45.909 Unspecified asthma, uncomplicated; E66.9 Obesity, unspecified; Z88.8 Allergy status to other drugs, medicaments and biological substances; Z88.5 Allergy status to narcotic agent; Z88.0 Allergy status to penicillin; Z79.899 Other long term (current) drug therapy; W00.0XXA Fall on same level due to ice and snow, initial encounter
CPT/HCPCS: 01620; 23650; 73020; 73030; 73120; 96372; 96374; 96375; 96376; 99283; A9270; J1170; J2250; J2405; J2550; J2704; J3490; J7040

== ENCOUNTER 2024-01-28 19:40 | Emergency (ER) | payer BC, OTHER ==
[2024-01-28] MEDS: methylPREDNISolone Sodium Succinate 125 MG/2 ML SDV IM ONE (20:05)
[2024-01-28 20:37] VITALS: BP 147/86; PULSE 78
== END 2024-01-28 20:33 | disposition home or self-care (01) ==
LOC: DL.ED 19:40
DX: L50.0 Allergic urticaria (principal); I10 Essential (primary) hypertension; J45.909 Unspecified asthma, uncomplicated; E11.9 Type 2 diabetes mellitus without complications; E66.9 Obesity, unspecified; Z90.710 Acquired absence of both cervix and uterus; Z68.42 Body mass index [BMI] 45.0-49.9, adult; Z79.899 Other long term (current) drug therapy; Z88.8 Allergy status to other drugs, medicaments and biological substances; Z88.1 Allergy status to other antibiotic agents; Z88.5 Allergy status to narcotic agent
CPT/HCPCS: 96372; 99284; J2919

== ENCOUNTER 2024-11-08 18:42 | Inpatient (IN) | payer BC, OTHER ==
[2024-11-08] MEDS ORDERED: Sodium Chloride 0.9% 10 ML Syringe FLUSH PRN (19:45)
[2024-11-08 20:25] LABS: BASOPHILS PERCENT AUTO 0.3 % (0.0-1.0); EOSINOPHILS PERCENT AUTO 1.3 % (1.0-3.0); LYMPHOCYTES PERCENT AUTO 19.4 % (20.5-50.1); MONOCYTES PERCENT AUTO 6.0 % (2-8); NEUTROPHILS PERCENT AUTO 73.0 % (42.2-75.2); PLATELET COUNT,PLT 282 10^3/uL (150-450); RED BLOOD CELL COUNT 4.24 10^6/uL (4.2-5.4); WHITE BLOOD CELL COUNT,WBC 13.3 10^3/uL (5.0-10.0)
[2024-11-08 20:41] LABS: A/G RATIO 0.9; ALANINE AMINOTRANSFERASE,ALT 40.0 U/L (14-59); ASPARTATE AMNIOTRANSFERASE,AST 35.0 U/L (15-37); BILIRUBIN TOTAL 0.7 mg/dL (0.2-1.0); BLOOD UREA NITROGEN,BUN 7.0 mg/dL (7-18); CARBON DIOXIDE,CO2 26.0 mmol/L (21-32); CHLORIDE,CL 105.0 mmol/L (98-107); CREATININE 0.87 mg/dL (0.55-1.02); EST CRCL DRUG DOSING (CG) 64.97 mL/min; GLUCOSE RANDOM 132.0 mg/dL (70-99); POTASSIUM,K 3.7 mmol/L (3.5-5.1); PROTEIN TOTAL,TP 7.7 g/dL (6.4-8.2); SODIUM,NA 139.0 mmol/L (136-145)
[2024-11-08 20:43] LABS: ESTIMATED GFR 78.0 mL/min (>=60)
[2024-11-08 20:44] LABS: LACTIC ACID 0.8 mmol/L (0.4-2.0)
[2024-11-08] MEDS: Lactated Ringers 1,000 ML IV SCH (21:55)
[2024-11-08] MEDS: Ketorolac 30 MG/ML SDV IVPUSH ONE (21:55)
[2024-11-08] MEDS: Iopamidol 612 MG/ML 100 ML Bottle IVPUSH ONE (22:04)
[2024-11-09] MEDS: metroNIDAZOLE/Normal Saline 500 MG in Premix Bag 1 BAG IV ONE (00:02)
[2024-11-09] MEDS: diphenhydrAMINE 50 MG/ML SDV IVPUSH ONE (00:15)
[2024-11-09] MEDS ORDERED: Mometasone Furoate Powder 220 MCG/Puff 14 Dose Inhaler INH PRN (01:55)
[2024-11-09] MEDS ORDERED: fentaNYL 100 MCG/2 ML SDV IVPUSH PRN (01:59)
[2024-11-09] MEDS ORDERED: Ondansetron 4 MG/2 ML SDV IVPUSH PRN (02:00)
[2024-11-09] MEDS: fentaNYL 100 MCG/2 ML SDV IVPUSH ONE (03:12)
[2024-11-09] MEDS: metroNIDAZOLE/Normal Saline 500 MG in Premix Bag 1 BAG IV SCH (05:33)
[2024-11-09] MEDS: Heparin Sodium 5,000 Units/ML Vial SUBCUT SCH (05:52)
[2024-11-09 06:28] LABS: BASOPHILS PERCENT AUTO 0.3 % (0.0-1.0); EOSINOPHILS PERCENT AUTO 1.4 % (1.0-3.0); LYMPHOCYTES PERCENT AUTO 28.1 % (20.5-50.1); MONOCYTES PERCENT AUTO 8.5 % (2-8); NEUTROPHILS PERCENT AUTO 61.7 % (42.2-75.2); PLATELET COUNT,PLT 265 10^3/uL (150-450); RED BLOOD CELL COUNT 3.91 10^6/uL (4.2-5.4); WHITE BLOOD CELL COUNT,WBC 11.8 10^3/uL (5.0-10.0)
[2024-11-09 06:47] LABS: BLOOD UREA NITROGEN,BUN 7.0 mg/dL (7-18); CARBON DIOXIDE,CO2 26.0 mmol/L (21-32); CHLORIDE,CL 108.0 mmol/L (98-107); CREATININE 0.78 mg/dL (0.55-1.02); EST CRCL DRUG DOSING (CG) 72.47 mL/min; GLUCOSE RANDOM 109.0 mg/dL (70-99); PHOSPHORUS 3.8 mg/dL (2.6-4.7); POTASSIUM,K 3.6 mmol/L (3.5-5.1); SODIUM,NA 141.0 mmol/L (136-145)
[2024-11-09 06:50] LABS: ESTIMATED GFR 89.0 mL/min (>=60)
[2024-11-09] MEDS: Ciprofloxacin in D5W 400 MG in Premix Bag 1 BAG IV SCH (08:53)
[2024-11-09] MEDS ORDERED: 50% Dextrose in Water 50 ML Syringe IVPUSH PRN (11:35)
[2024-11-09] MEDS: Omeprazole 20 MG Cap.CR PO SCH ×2 (13:40→13:51)
[2024-11-09] MEDS: Ketorolac 30 MG/ML SDV IVPUSH PRN (17:58)
[2024-11-10 06:27] LABS: BASOPHILS PERCENT AUTO 0.3 % (0.0-1.0); EOSINOPHILS PERCENT AUTO 2.9 % (1.0-3.0); LYMPHOCYTES PERCENT AUTO 31.5 % (20.5-50.1); MONOCYTES PERCENT AUTO 7.9 % (2-8); NEUTROPHILS PERCENT AUTO 57.4 % (42.2-75.2); PLATELET COUNT,PLT 227 10^3/uL (150-450); RED BLOOD CELL COUNT 3.57 10^6/uL (4.2-5.4); WHITE BLOOD CELL COUNT,WBC 7.3 10^3/uL (5.0-10.0)
[2024-11-10 06:52] LABS: ALANINE AMINOTRANSFERASE,ALT 21.0 U/L (14-59); ASPARTATE AMNIOTRANSFERASE,AST 23.0 U/L (15-37); BILIRUBIN TOTAL 0.7 mg/dL (0.2-1.0); BLOOD UREA NITROGEN,BUN 6.0 mg/dL (7-18); CARBON DIOXIDE,CO2 22.0 mmol/L (21-32); CHLORIDE,CL 111.0 mmol/L (98-107); CREATININE 0.74 mg/dL (0.55-1.02); EST CRCL DRUG DOSING (CG) 76.38 mL/min; GLUCOSE RANDOM 104.0 mg/dL (70-99); POTASSIUM,K 3.9 mmol/L (3.5-5.1); PROTEIN TOTAL,TP 6.3 g/dL (6.4-8.2); SODIUM,NA 142.0 mmol/L (136-145)
[2024-11-10 07:01] LABS: A/G RATIO 0.8; ESTIMATED GFR 95.0 mL/min (>=60)
[2024-11-10 11:42] VITALS: BP 142/67; PULSE 72
== END 2024-11-10 13:30 | disposition home or self-care (01) | DRG 244 ==
LOC: DL.ED 18:42 → DL.MS 11-09 01:12
PROVIDERS: ADMIT Internal Medicine; ATTEND Student in an Organized Health Care Education/Training Program
DX: K57.92 Diverticulitis of intestine, part unspecified, without perforation or abscess without bleeding (principal); E66.9 Obesity, unspecified; K21.9 Gastro-esophageal reflux disease without esophagitis; E11.9 Type 2 diabetes mellitus without complications; H54.7 Unspecified visual loss; J45.909 Unspecified asthma, uncomplicated; K59.09 Other constipation; I10 Essential (primary) hypertension; M19.90 Unspecified osteoarthritis, unspecified site; M54.9 Dorsalgia, unspecified; G89.29 Other chronic pain; E78.5 Hyperlipidemia, unspecified; F41.9 Anxiety disorder, unspecified; D64.9 Anemia, unspecified; Z85.3 Personal history of malignant neoplasm of breast; Z90.49 Acquired absence of other specified parts of digestive tract; Z88.0 Allergy status to penicillin; Z90.710 Acquired absence of both cervix and uterus; Z68.42 Body mass index [BMI] 45.0-49.9, adult; Z88.8 Allergy status to other drugs, medicaments and biological substances; Z79.899 Other long term (current) drug therapy; Z98.890 Other specified postprocedural states; Z90.10 Acquired absence of unspecified breast and nipple
CPT/HCPCS: 36415; 74177; 80048; 80053; 82947; 83605; 83690; 83735; 84100; 85025; 96361; 96365; 96375; 99223; 99238; 99284; 99285-25; A9270-GY; J0696; J0744; J1200; J1644; J1650; J1836; J1885; J3010; J7030; J7120; Q9967

== ENCOUNTER 2025-01-13 14:02 | Emergency (ER) | payer BC, OTHER ==
[2025-01-13 14:16] VITALS: BP 149/119; PULSE 89
== END 2025-01-13 14:28 | disposition home or self-care (01) ==
LOC: DL.ED 14:02
DX: R07.89 Other chest pain (principal); I10 Essential (primary) hypertension; E11.9 Type 2 diabetes mellitus without complications; K21.9 Gastro-esophageal reflux disease without esophagitis; Z88.5 Allergy status to narcotic agent; Z88.8 Allergy status to other drugs, medicaments and biological substances; Z79.899 Other long term (current) drug therapy; Z90.49 Acquired absence of other specified parts of digestive tract
CPT/HCPCS: 99283; 99284